=== PATIENT | female | born 1990 | race African-American/Black ===

== ENCOUNTER 2017-06-16 10:10 | Emergency (ER) | payer OTHER ==
[~2017-06-16] VITALS: Ht 170.2 cm; Wt 93.0 kg
[2017-06-16 13:11] LABS: BASOPHILS % 0.4 % (0.0-2.0); EOSINOPHILS % 0.7 % (0.0-5.0); HEMOGLOBIN. 11.5 g/dL (12.0-16.0); LYMPHOCYTES % 15.3 % (20.0-50.0); MEAN CORPUSCULAR HEMOGLOBIN 28.7 pg (28.0-32.0); MEAN CORPUSCULAR VOLUME 85.1 fL (81.0-99.0); MEAN PLATELET VOLUME 6.9 fl (7.4-10.4); MONOCYTES % 4.5 % (2.0-8.0); NEUTROPHILS % 79.1 % (40.0-76.0); PLATELET 220 x1000/uL (130-400); RED BLOOD CELL COUNT 3.99 mill/uL (4.2-5.4); RED CELL DISTRIBUTION WIDTH 13.2 % (11.6-14.6)
[2017-06-16 13:16] LABS: CHLORIDE 102 mEq/L (98-107)
[2017-06-16 13:16] LABS: CLARITY URINE CLEAR (CLEAR); COLOR URINE YELLOW (YELLOW); GLUCOSE URINE NEGATIVE (NEGATIVE); KETONES URINE 2+ (NEGATIVE); LEUKOCYTE ESTERASE URINE TRACE (NEGATIVE); NITRITE URINE NEGATIVE (NEGATIVE); OCCULT BLOOD URINE NEGATIVE (NEGATIVE); PROTEIN URINE NEGATIVE (NEGATIVE); SPECIFIC GRAVITY URINE 1.022 (1.005-1.030)
[2017-06-16 13:18] LABS: INR 1.1; PROTHROMBIN TIME 10.9 sec (9.4-11.6)
[2017-06-16 13:32] LABS: CARBON DIOXIDE 25 mEq/L (21-32)
[2017-06-16 13:40] LABS: B-HCG QUANTITATIVE 55449 mIU/mL (<3)
[2017-06-16] MEDS ORDERED: ACETAMINOPHEN 325MG TABLET PO ONE (14:45)
[2017-06-16 22:23] VITALS: BP 105/67
== END 2017-06-16 22:25 | disposition home or self-care (01) ==
LOC: ER 10:10
DX: O26.891 Other specified pregnancy related conditions, first trimester (principal); R10.31 Right lower quadrant pain; Z3A.12 12 weeks gestation of pregnancy
CPT/HCPCS: 36415; 74181; 76801; 76817; 76857; 80053; 81001; 83690; 84702; 85025; 85610; 99285; Z7610

== ENCOUNTER 2017-06-28 00:02 | Emergency (ER) | payer OTHER ==
[~2017-06-28] VITALS: Ht 162.6 cm; Wt 92.0 kg
[2017-06-28] MEDS ORDERED: SODIUM CHLORIDE 0.9% 1,000 ML IV ONE (01:30)
[2017-06-28] MEDS ORDERED: ONDANSETRON HCL 4MG/2ML VIAL IV STA (01:30)
[2017-06-28 01:49] LABS: HEMATOCRIT. 35.2 % (36.0-48.0); MEAN CORPUSCULAR HEMOGLOBIN 29.2 pg (28.0-32.0); MEAN CORPUSCULAR VOLUME 85.6 fL (81.0-99.0); MEAN PLATELET VOLUME 6.7 fl (7.4-10.4); PLATELET 264 x1000/uL (130-400); RED BLOOD CELL COUNT 4.11 mill/uL (4.2-5.4); RED CELL DISTRIBUTION WIDTH 12.9 % (11.6-14.6)
[2017-06-28 01:54] LABS: CHLORIDE 105 mEq/L (98-107)
[2017-06-28 02:11] LABS: CARBON DIOXIDE 24 mEq/L (21-32); ETHANOL BLOOD < 10 mg/dL
[2017-06-28 02:18] LABS: B-HCG QUANTITATIVE 32237 mIU/mL (<3)
[2017-06-28 02:41] LABS: CLARITY URINE CLOUDY (CLEAR); COLOR URINE YELLOW (YELLOW); GLUCOSE URINE NEGATIVE (NEGATIVE); KETONES URINE 1+ (NEGATIVE); LEUKOCYTE ESTERASE URINE 2+ (NEGATIVE); NITRITE URINE NEGATIVE (NEGATIVE); OCCULT BLOOD URINE NEGATIVE (NEGATIVE); PROTEIN URINE TRACE (NEGATIVE); SPECIFIC GRAVITY URINE 1.026 (1.005-1.030)
[2017-06-28 03:07] LABS: *AMPHETAMINES SCREEN URINE NEGATIVE (NEGATIVE); *BARBITURATES SCREEN URINE NEGATIVE (NEGATIVE); *BENZODIAZEPINES SCREEN URINE NEGATIVE (NEGATIVE); *COCAINE SCREEN URINE NEGATIVE (NEGATIVE); METHADONE URINE SCREEN NEGATIVE (NEGATIVE); OPIATES URINE SCREEN NEGATIVE (NEGATIVE); PHENCYCLIDINE URINE SCREEN NEGATIVE (NEGATIVE)
[2017-06-28 03:20] LABS: CANNABINOID URINE SCREEN PRESUMTIVE POSITIVE (NEGATIVE)
[2017-06-28 03:59] LABS: PLATELET ESTIMATE NORMAL
[2017-06-28] MEDS ORDERED: CEFTRIAXONE 1 G PREMIX 50 ML IV ONE (04:00)
[2017-06-28 05:44] VITALS: BP 123/56
== END 2017-06-28 05:50 | disposition home or self-care (01) ==
LOC: ER 00:02
DX: O23.41 Unspecified infection of urinary tract in pregnancy, first trimester (principal); Z3A.13 13 weeks gestation of pregnancy
CPT/HCPCS: 36415; 80053; 80305; 81001; 81025; 83690; 84702; 85025; 96361; 96365; 96375; 99284; G0482; J0696; J2405; J7030

== ENCOUNTER 2017-08-18 23:18 | Observation (INO) | payer MEDICAID, OTHER ==
[~2017-08-18] VITALS: Ht 170.2 cm; Wt 90.7 kg
[2017-08-19] MEDS ORDERED: PNV1TABL76 MT (00:39)
[2017-08-19] MEDS ORDERED: LACTATED RINGERS 1,000 ML IV SCH (00:45)
[2017-08-19] MEDS ORDERED: ONDANSETRON HCL 4MG/2ML VIAL IV ONE (00:45)
[2017-08-19] MEDS ORDERED: CITRIC ACID/SODIUM CITRATE SOLN 15ML UDC PO SCH (00:45)
[2017-08-19] MEDS ORDERED: ONDANSETRON HCL 4MG/2ML VIAL IV SCH (01:30)
== END 2017-08-19 02:10 | disposition home or self-care (01) ==
LOC: L&D 23:18
PROVIDERS: ADMIT Obstetrics & Gynecology; ATTEND Obstetrics & Gynecology
DX: O26.892 Other specified pregnancy related conditions, second trimester (principal); R10.13 Epigastric pain; R11.2 Nausea with vomiting, unspecified; M54.89 Other dorsalgia; Z3A.21 21 weeks gestation of pregnancy
CPT/HCPCS: 96361; 96374; 99281; G0378; J2405; J7120; 96360

== ENCOUNTER 2017-09-24 13:54 | Observation (INO) | payer MEDICAID ==
[~2017-09-24] VITALS: Ht 170.2 cm; Wt 91.6 kg
[~2017-09-24 13:54] MED LIST: PNV1TABL76 MT
[2017-09-24] MEDS ORDERED: LACTATED RINGERS 1,000 ML IV SCH (15:30)
[2017-09-24] MEDS ORDERED: CITRIC ACID/SODIUM CITRATE SOLN 30ML UDC PO NR (15:30)
[2017-09-24] MEDS ORDERED: ONDANSETRON HCL 4MG/2ML VIAL IM NR (15:47)
[2017-09-24 16:10] LABS: BASOPHILS % 0.4 % (0.0-2.0); EOSINOPHILS % 0.8 % (0.0-5.0); HEMATOCRIT. 31.5 % (36.0-48.0); HEMOGLOBIN. 10.7 g/dL (12.0-16.0); LYMPHOCYTES % 10.5 % (20.0-50.0); MEAN CORPUSCULAR HEMOGLOBIN 30.4 pg (28.0-32.0); MEAN CORPUSCULAR VOLUME 89.6 fL (81.0-99.0); MEAN PLATELET VOLUME 7.2 fl (7.4-10.4); NEUTROPHILS % 83.3 % (40.0-76.0); PLATELET 234 x1000/uL (130-400); RED BLOOD CELL COUNT 3.52 mill/uL (4.2-5.4); RED CELL DISTRIBUTION WIDTH 13.5 % (11.6-14.6)
[2017-09-24 16:22] LABS: CARBON DIOXIDE 23 mEq/L (21-32); CHLORIDE 107 mEq/L (98-107)
[2017-09-24 16:48] LABS: KETONES URINE NEGATIVE (NEGATIVE); LEUKOCYTE ESTERASE URINE 1+ (NEGATIVE); NITRITE URINE NEGATIVE (NEGATIVE); OCCULT BLOOD URINE NEGATIVE (NEGATIVE); PROTEIN URINE NEGATIVE (NEGATIVE); SPECIFIC GRAVITY URINE 1.023 (1.005-1.030)
[2017-09-24 16:50] LABS: CLARITY URINE CLEAR (CLEAR); COLOR URINE YELLOW (YELLOW)
== END 2017-09-24 17:45 | disposition home or self-care (01) ==
LOC: L&D 13:54
PROVIDERS: ADMIT Obstetrics & Gynecology; ATTEND Obstetrics & Gynecology
DX: O26.892 Other specified pregnancy related conditions, second trimester (principal); R42 Dizziness and giddiness; R10.10 Upper abdominal pain, unspecified; Z3A.26 26 weeks gestation of pregnancy
CPT/HCPCS: 36415; 80053; 81001; 85025; 96360; 96361; 96372; 99281; G0378; J2405; J7120

== ENCOUNTER 2017-12-14 21:54 | Inpatient (IN) | payer MEDICAID ==
[~2017-12-14] VITALS: Ht 170.2 cm; Wt 99.8 kg
[2017-12-14 22:00] VITALS: BP 124/82
[2017-12-14] MEDS ORDERED: DEXT 5%/LR + PITOCIN 20UNITS/L 1,000 ML IV ONE (22:58)
[2017-12-14] MEDS ORDERED: LIDOCAINE HCL 1% 20ML VIAL (Pyxis) INJ INFIL SCH (23:00)
[2017-12-14] MEDS ORDERED: CARBOPROST TROMETHAMINE 250 MCG/ML AMPUL IM PRN (23:00)
[2017-12-14] MEDS ORDERED: LACTATED RINGERS 1,000 ML IV SCH (23:00)
[2017-12-14] MEDS ORDERED: DEXT 5%/LR + PITOCIN 20UNITS/L 1,000 ML IV SCH (23:00)
[2017-12-14] MEDS ORDERED: METHYLERGONOVINE MALEATE 0.2 MG/ML IM PRN (23:00)
[2017-12-14] MEDS ORDERED: NALOXONE HCL 0.4 MG/ML 1ML VIAL IM PRN (23:00)
[2017-12-15] MEDS ORDERED: DEXT 5%/LR + PITOCIN 20UNITS/L 1,000 ML IV SCH (00:03)
[2017-12-15] MEDS ORDERED: LANOLIN OINT 0.25 GM TUBE TOP PRN (00:15)
[2017-12-15] MEDS ORDERED: GLYCERIN/WITCH HAZEL LEAF MEDICATED PAD TOP PRN (00:15)
[2017-12-15] MEDS ORDERED: BISACODYL 10MG SUPP PR PRN (00:15)
[2017-12-15] MEDS ORDERED: FERR324T4 PO (00:34)
[2017-12-15 01:45] LABS: BASOPHILS % 0.3 % (0.0-2.0); EOSINOPHILS % 0.1 % (0.0-5.0); LYMPHOCYTES % 8.1 % (20.0-50.0); MEAN CORPUSCULAR VOLUME 87.6 fL (81.0-99.0); MEAN PLATELET VOLUME 7.8 fl (7.4-10.4); MONOCYTES % 3.4 % (2.0-8.0); NEUTROPHILS % 88.1 % (40.0-76.0); PLATELET 220 x1000/uL (130-400); RED CELL DISTRIBUTION WIDTH 13.1 % (11.6-14.6)
[2017-12-15 01:56] LABS: PARTIAL THROMBOPLASTIN TIME 28.7 sec (23.4-31.0)
[2017-12-15 02:00] VITALS: BP 123/78
[2017-12-15] MEDS: IBUPROFEN 400MG TABLET PO PRN ×3 (02:31→18:07)
[2017-12-15 03:00] VITALS: BP 125/82
[2017-12-15 04:44] LABS: CLARITY URINE CLOUDY (CLEAR); COLOR URINE YELLOW (YELLOW); KETONES URINE NEGATIVE (NEGATIVE); LEUKOCYTE ESTERASE URINE 3+ (NEGATIVE); NITRITE URINE NEGATIVE (NEGATIVE); OCCULT BLOOD URINE 3+ (NEGATIVE); PROTEIN URINE NEGATIVE (NEGATIVE)
[2017-12-15 05:09] LABS: *AMPHETAMINES SCREEN URINE NEGATIVE (NEGATIVE); *BARBITURATES SCREEN URINE NEGATIVE (NEGATIVE); *COCAINE SCREEN URINE NEGATIVE (NEGATIVE); CANNABINOID URINE SCREEN NEGATIVE (NEGATIVE); METHADONE URINE SCREEN NEGATIVE (NEGATIVE); OPIATES URINE SCREEN NEGATIVE (NEGATIVE); PHENCYCLIDINE URINE SCREEN NEGATIVE (NEGATIVE)
[2017-12-15 05:32] LABS: *BENZODIAZEPINES SCREEN URINE NEGATIVE (NEGATIVE)
[2017-12-15 06:00] VITALS: BP 125/81
[2017-12-15 07:36] VITALS: BP 115/84
[2017-12-15] MEDS: MAGNESIUM/ALUMINUM HYDROXIDE/SIMETHICONE 30ML UDC PO SCH ×4 (08:31→20:45)
[2017-12-15] MEDS: SIMETHICONE 80MG TABLET CHEW PO SCH ×4 (08:31→20:45)
[2017-12-15] MEDS: PRENATAL VIT/FE FUMARATE/FA TABLET PO SCH (08:32)
[2017-12-15 11:03] LABS: HEPATITIS B SURFACE ANTIGEN NEGATIVE
[2017-12-15] MEDS: ACETAMINOPHEN WITH CODEINE 300/30MG TABLET PO PRN (12:36)
[2017-12-15 16:02] VITALS: BP 101/51
[2017-12-16] MEDS: IBUPROFEN 400MG TABLET PO PRN (05:16)
[2017-12-16 07:16] LABS: BASOPHILS % 0.4 % (0.0-2.0); EOSINOPHILS % 1.3 % (0.0-5.0); HEMATOCRIT. 29.5 % (36.0-48.0); HEMOGLOBIN. 10.2 g/dL (12.0-16.0); MEAN CORPUSCULAR HEMOGLOBIN 30.8 pg (28.0-32.0); MEAN CORPUSCULAR VOLUME 88.8 fL (81.0-99.0); MONOCYTES % 5.8 % (2.0-8.0); NEUTROPHILS % 71.5 % (40.0-76.0); PLATELET 179 x1000/uL (130-400); RED BLOOD CELL COUNT 3.32 mill/uL (4.2-5.4); RED CELL DISTRIBUTION WIDTH 13.3 % (11.6-14.6)
[2017-12-16 08:00] VITALS: BP 107/75
[2017-12-16] MEDS: PRENATAL VIT/FE FUMARATE/FA TABLET PO SCH (08:30)
[2017-12-16] MEDS: SIMETHICONE 80MG TABLET CHEW PO SCH (08:31)
[2017-12-16] MEDS: ACETAMINOPHEN WITH CODEINE 300/30MG TABLET PO PRN ×2 (08:31→14:50)
[2017-12-16 18:03] VITALS: BP 115/56
== END 2017-12-16 18:00 | disposition home or self-care (01) | DRG 560 ==
LOC: L&D 21:54 → OBSVTOIN 21:54 → 7EST PP/OB 12-15 01:49
PROVIDERS: ADMIT Obstetrics & Gynecology; ATTEND Obstetrics & Gynecology
PROC: 10E0XZZ Delivery of Products of Conception, External Approach (ICD-10-PCS; principal; 2017-12-15)
DX: O80 Encounter for full-term uncomplicated delivery (principal); Z37.0 Single live birth; Z3A.39 39 weeks gestation of pregnancy
CPT/HCPCS: 36415; 80305; 81003; 85025; 85610; 85730; 86592; 86703; 86762; 86850; 86900; 87077; 87086; 87186; 87340; J2590; J7120

== ENCOUNTER 2020-02-20 14:43 | Emergency (ER) | payer MEDICAID ==
[~2020-02-20] VITALS: Ht 172.7 cm; Wt 91.0 kg
[2020-02-20] MEDS ORDERED: SODIUM CHLORIDE 0.9% 1,000 ML IV ONE (14:57)
[2020-02-20] MEDS ORDERED: ACETAMINOPHEN 325MG TABLET PO PRN (15:00)
[2020-02-20 15:35] LABS: BASOPHILS % 0.8 % (0.0-2.0); EOSINOPHILS % 1.2 % (0.0-5.0); HEMATOCRIT. 38.2 % (36.0-48.0); LYMPHOCYTES % 16.7 % (20.0-50.0); MEAN CORPUSCULAR HEMOGLOBIN 29.5 pg (28.0-32.0); MEAN CORPUSCULAR VOLUME 86.5 fL (81.0-99.0); MEAN PLATELET VOLUME 7.4 fl (7.4-10.4); MONOCYTES % 6.2 % (2.0-8.0); NEUTROPHILS % 75.1 % (40.0-76.0); PLATELET 237 x1000/uL (130-400); RED BLOOD CELL COUNT 4.41 mill/uL (4.2-5.4); RED CELL DISTRIBUTION WIDTH 13.3 % (11.6-14.6)
[2020-02-20 15:39] LABS: CLARITY URINE CLOUDY (CLEAR); COLOR URINE YELLOW (YELLOW); KETONES URINE TRACE (NEGATIVE); LEUKOCYTE ESTERASE URINE 1+ (NEGATIVE); NITRITE URINE NEGATIVE (NEGATIVE); OCCULT BLOOD URINE 3+ (NEGATIVE); PH URINE 5.5 (4.5-8.0); PROTEIN URINE 1+ (NEGATIVE); SPECIFIC GRAVITY URINE 1.031 (1.005-1.030)
[2020-02-20 15:40] LABS: CHLORIDE 109 mEq/L (98-107)
[2020-02-20 16:20] LABS: B-HCG QUANTITATIVE 12106 mIU/mL (<3)
[2020-02-20] MEDS ORDERED: CEFTRIAXONE 1 G PREMIX 50 ML IV ONE (17:30)
[2020-02-20] MEDS ORDERED: HYDROCODONE/ACETAMINOPHEN 5/325MG TABLET PO ONE (18:30)
[2020-02-20] MEDS ORDERED: KETOROLAC 30MG/ML VIAL IV ONE (18:30)
[2020-02-20 20:00] VITALS: BP 112/60
== END 2020-02-20 20:18 | disposition home or self-care (01) ==
LOC: ER 14:54
DX: O03.9 Complete or unspecified spontaneous abortion without complication (principal)
CPT/HCPCS: 36415; 76801; 76817; 80053; 81003; 81025; 84702; 85025; 86850; 86900; 86901; 96365; 96375; 99285; J0696; J1885; J7030

== ENCOUNTER 2021-01-03 11:00 | Emergency (ER) | payer MEDICAID ==
[~2021-01-03] VITALS: Ht 170.2 cm; Wt 88.0 kg
[2021-01-03] MEDS ORDERED: ACETAMINOPHEN 325MG TABLET PO STA (11:28)
[2021-01-03 11:38] LABS: CLARITY URINE CLEAR (CLEAR); COLOR URINE YELLOW (YELLOW); KETONES URINE 1+ (NEGATIVE); LEUKOCYTE ESTERASE URINE 2+ (NEGATIVE); NITRITE URINE POSITIVE (NEGATIVE); OCCULT BLOOD URINE TRACE (NEGATIVE); PROTEIN URINE TRACE (NEGATIVE); UROBILINOGEN URINE 0.2 E.U./dL (0.2-1.0)
[2021-01-03] MEDS ORDERED: CEFTRIAXONE SODIUM 1 G/VIAL IM STA (12:04)
[2021-01-03] MEDS ORDERED: LIDOCAINE HCL 1% 20ML VIAL (Pyxis) INJ INFIL ONE (12:15)
[2021-01-03] MEDS ORDERED: AMOX-424 PO (12:23)
[2021-01-03] MEDS ORDERED: ONDA4TAB11 PO (12:23)
[2021-01-03] MEDS ORDERED: ACET-2708 PO (12:23)
[2021-01-03 12:42] VITALS: BP 117/89
== END 2021-01-03 12:43 | disposition home or self-care (01) ==
LOC: ER 11:20
DX: O23.41 Unspecified infection of urinary tract in pregnancy, first trimester (principal); Z3A.01 Less than 8 weeks gestation of pregnancy; Z79.899 Other long term (current) drug therapy
CPT/HCPCS: 81003; 81025; 87077; 87086; 87186; 96372; 99283; J0696; J3490

== ENCOUNTER 2021-07-21 04:39 | Observation (INO) | payer MEDICAID ==
[~2021-07-21] VITALS: Ht 167.6 cm; Wt 100.7 kg
[~2021-07-21 04:39] MED LIST changes: +ACET-2708 PO; +AMOX-424 PO; +ONDA4TAB11 PO; -PNV1TABL76 MT
[2021-07-21] MEDS ORDERED: PREN-176 PO (05:23)
[2021-07-21] MEDS ORDERED: OMEP20TA15 PO (05:23)
[2021-07-21] MEDS ORDERED: LACTATED RINGERS 1,000 ML IV SCH (05:45)
[2021-07-21 06:03] LABS: CLARITY URINE CLOUDY (CLEAR); COLOR URINE DARK YELLOW (YELLOW); KETONES URINE TRACE (NEGATIVE); LEUKOCYTE ESTERASE URINE 2+ (NEGATIVE); NITRITE URINE NEGATIVE (NEGATIVE); OCCULT BLOOD URINE NEGATIVE (NEGATIVE); PH URINE 5.5 (4.5-8.0); PROTEIN URINE TRACE (NEGATIVE); SPECIFIC GRAVITY URINE 1.025 (1.005-1.030)
[2021-07-21] MEDS ORDERED: FLUCONAZOLE 150MG TABLET PO ONE (06:30)
[2021-07-21] MEDS ORDERED: CEFAZOLIN 2,000 MG in DEXT 5% WATER 100 ML IV SCH (07:00)
== END 2021-07-21 08:30 | disposition home or self-care (01) ==
LOC: 8 EST LDRP 04:39
PROVIDERS: ADMIT Obstetrics & Gynecology; ATTEND Obstetrics & Gynecology
DX: O26.893 Other specified pregnancy related conditions, third trimester (principal); R10.10 Upper abdominal pain, unspecified; O62.9 Abnormality of forces of labor, unspecified; O99.891 Other specified diseases and conditions complicating pregnancy; M54.9 Dorsalgia, unspecified; Z3A.34 34 weeks gestation of pregnancy
CPT/HCPCS: 76805; 81003; 96361; 96365; G0378; J0690; J7060; 59025; 99281; G0379

== ENCOUNTER 2021-08-19 23:40 | Inpatient (IN) | payer MEDICAID ==
[~2021-08-19] VITALS: Ht 170.2 cm; Wt 111.1 kg
[~2021-08-19 23:40] MED LIST changes: -ACET-2708 PO; -AMOX-424 PO; +OMEP20TA15 PO; -ONDA4TAB11 PO; +PREN-176 PO
[2021-08-20] MEDS ORDERED: PENICILLIN G POTASSIUM 5 MMU in DEXT 5% WATER 100 ML IV NR (00:30)
[2021-08-20] MEDS ORDERED: DEXT 5%/LACTATED RINGERS 1,000 ML IV SCH (00:30)
[2021-08-20] MEDS ORDERED: RHO(D) IMMUNE GLOBULIN 300 MCG/SYR IM PRN ×2 (00:30→13:30)
[2021-08-20] MEDS ORDERED: ROPIVACAINE HCL/PF EPIDURAL 200 ML EPI SCH (00:45)
[2021-08-20 01:37] LABS: BASOPHILS % 0.3 % (0.0-2.0); EOSINOPHILS % 0.4 % (0.0-5.0); HEMATOCRIT. 26.4 % (36.0-48.0); HEMOGLOBIN. 8.6 g/dL (12.0-16.0); LYMPHOCYTES % 11.6 % (20.0-50.0); MEAN CORPUSCULAR HEMOGLOBIN 24.8 pg (28.0-32.0); MEAN PLATELET VOLUME 7.4 fl (7.4-10.4); MONOCYTES % 5.6 % (2.0-8.0); NEUTROPHILS % 82.1 % (40.0-76.0); PLATELET 249 x1000/uL (130-400); RED BLOOD CELL COUNT 3.48 mill/uL (4.2-5.4); RED CELL DISTRIBUTION WIDTH 15.2 % (11.6-14.6)
[2021-08-20 01:55] LABS: INR 0.9; PROTHROMBIN TIME 10.2 sec (9.6-11.0)
[2021-08-20] MEDS ORDERED: DEXT 5%/LR + PITOCIN 20UNITS/L 1,000 ML IV SCH ×3 (02:00→13:30)
[2021-08-20] MEDS: LACTATED RINGERS 1,000 ML IV SCH ×2 (02:07→09:07)
[2021-08-20 03:10] LABS: HEPATITIS B SURFACE ANTIGEN NEGATIVE
[2021-08-20 03:48] LABS: CLARITY URINE CLEAR (CLEAR); COLOR URINE YELLOW (YELLOW); KETONES URINE NEGATIVE (NEGATIVE); LEUKOCYTE ESTERASE URINE 3+ (NEGATIVE); NITRITE URINE NEGATIVE (NEGATIVE); OCCULT BLOOD URINE 1+ (NEGATIVE); PH URINE 7.5 (4.5-8.0); PROTEIN URINE NEGATIVE (NEGATIVE); SPECIFIC GRAVITY URINE 1.011 (1.005-1.030)
[2021-08-20 04:22] LABS: *AMPHETAMINES SCREEN URINE NEGATIVE (NEGATIVE); *BARBITURATES SCREEN URINE NEGATIVE (NEGATIVE); *BENZODIAZEPINES SCREEN URINE NEGATIVE (NEGATIVE); *COCAINE SCREEN URINE NEGATIVE (NEGATIVE); METHADONE URINE SCREEN NEGATIVE (NEGATIVE)
[2021-08-20 04:23] LABS: CANNABINOID URINE SCREEN NEGATIVE (NEGATIVE); OPIATES URINE SCREEN NEGATIVE (NEGATIVE); PHENCYCLIDINE URINE SCREEN NEGATIVE (NEGATIVE)
[2021-08-20] MEDS ORDERED: PENICILLIN G POTASSIUM 2.5 MMU in DEXTROSE 5% WATER 50 ML IV SCH (06:00)
[2021-08-20] MEDS ORDERED: MISOPROSTOL 100MCG TABLET VG PRN (12:15)
[2021-08-20] MEDS ORDERED: METHYLERGONOVINE MALEATE 0.2 MG/ML IM PRN (12:15)
[2021-08-20] MEDS ORDERED: LIDOCAINE HCL 1% 20ML VIAL (Pyxis) INJ INFIL SCH (12:15)
[2021-08-20] MEDS ORDERED: NALOXONE HCL 0.4 MG/ML 1ML VIAL IM PRN (12:15)
[2021-08-20] MEDS ORDERED: BUTORPHANOL TARTRATE 2 MG/ML VIAL IV PRN (12:15)
[2021-08-20] MEDS ORDERED: BISACODYL 10MG SUPP PR PRN (13:30)
[2021-08-20] MEDS ORDERED: DIPHENHYDRAMINE 25MG CAPSULE PO PRN (13:30)
[2021-08-20] MEDS ORDERED: ACETAMINOPHEN WITH CODEINE 300/30MG TABLET PO PRN (13:30)
[2021-08-20] MEDS ORDERED: HEMORRHOIDAL SUPP PR PRN (13:30)
[2021-08-20] MEDS ORDERED: GLYCERIN/WITCH HAZEL LEAF MEDICATED PAD TOP PRN (13:30)
[2021-08-20] MEDS ORDERED: LANOLIN OINT 7GM TUBE TOP PRN (13:30)
[2021-08-20] MEDS ORDERED: BENZOCAINE/LANOLIN/ALOE VERA SPRAY TOP PRN (13:30)
[2021-08-20] MEDS ORDERED: IBUPROFEN 400MG TABLET PO PRN (13:30)
[2021-08-20] MEDS: IBUPROFEN 800MG TABLET PO PRN ×2 (14:41→20:08)
[2021-08-20 15:45] VITALS: BP 123/81
[2021-08-20] MEDS: MAGNESIUM/ALUMINUM HYDROXIDE/SIMETHICONE 30ML UDC PO SCH ×2 (17:30→20:08)
[2021-08-20] MEDS: SIMETHICONE 80MG TABLET CHEW PO SCH ×2 (17:30→20:08)
[2021-08-20 20:00] VITALS: BP 136/80
[2021-08-20] MEDS: DOCUSATE SODIUM 100MG CAPSULE PO SCH (20:08)
[2021-08-21 04:30] VITALS: BP 117/68
[2021-08-21 06:34] LABS: BASOPHILS % 0.2 % (0.0-2.0); EOSINOPHILS % 0.5 % (0.0-5.0); HEMATOCRIT. 22.9 % (36.0-48.0); HEMOGLOBIN. 7.6 g/dL (12.0-16.0); MEAN CORPUSCULAR HEMOGLOBIN 25.2 pg (28.0-32.0); MEAN CORPUSCULAR VOLUME 76.1 fL (81.0-99.0); MEAN PLATELET VOLUME 7.4 fl (7.4-10.4); MONOCYTES % 5.3 % (2.0-8.0); PLATELET 211 x1000/uL (130-400); RED BLOOD CELL COUNT 3.01 mill/uL (4.2-5.4); RED CELL DISTRIBUTION WIDTH 14.9 % (11.6-14.6)
[2021-08-21] MEDS ORDERED: FERROUS SULFATE 325MG TABLET PO SCH (07:30)
[2021-08-21 07:45] VITALS: BP 116/76
[2021-08-21] MEDS ORDERED: PRENATAL VIT/FE FUMARATE/FA TABLET PO SCH (09:00)
[2021-08-21] MEDS ORDERED: FLUCONAZOLE 150MG TABLET PO NR (10:00)
[2021-08-21] MEDS: IBUPROFEN 800MG TABLET PO PRN ×2 (11:07→21:53)
[2021-08-21 15:55] VITALS: BP 12/87
[2021-08-21 19:30] VITALS: BP 129/84
[2021-08-21] MEDS: MAGNESIUM/ALUMINUM HYDROXIDE/SIMETHICONE 30ML UDC PO SCH (21:52)
[2021-08-21] MEDS: DOCUSATE SODIUM 100MG CAPSULE PO SCH (21:52)
[2021-08-21] MEDS: SIMETHICONE 80MG TABLET CHEW PO SCH (21:53)
[2021-08-22 04:00] VITALS: BP 134/89
[2021-08-22 08:30] VITALS: BP 121/85
== END 2021-08-22 18:31 | disposition home or self-care (01) | DRG 560 ==
LOC: 8EST NSY 23:40 → UNDOADMOB 23:40 → 8 EST LDRP 23:40 → OBSVTOIN 23:40 → 8EST 08-20 15:17
PROVIDERS: ADMIT Obstetrics & Gynecology; ATTEND Obstetrics & Gynecology
PROC: 10E0XZZ Delivery of Products of Conception, External Approach (ICD-10-PCS; principal; 2021-08-20)
DX: O98.82 Other maternal infectious and parasitic diseases complicating childbirth (principal); Z37.0 Single live birth; B37.9 Candidiasis, unspecified; Z20.822 Contact with and (suspected) exposure to COVID-19; O99.03 Anemia complicating the puerperium; Z3A.39 39 weeks gestation of pregnancy
CPT/HCPCS: 36415; 80305; 81003; 85025; 86592; 86703; 86762; 86850; 86900; 87340; 87426; 99281; G0378; J0595; J2540; J2590; J3490; J7060; J7120; J7121